=== PATIENT | female | born 1960 | race Caucasian/White ===

== ENCOUNTER → 2018-02-03 | Outpatient (CLI) | payer BC | END | disposition home or self-care (01) | LOC: US 15:19 | DX: N63.20 Unspecified lump in the left breast, unspecified quadrant (principal); N64.4 Mastodynia | CPT/HCPCS: 76641 ==

== ENCOUNTER → 2018-04-06 | Outpatient (CLI) | payer BC | END | disposition home or self-care (01) | LOC: MAMMO 15:33 | DX: Z12.31 Encounter for screening mammogram for malignant neoplasm of breast (principal) | CPT/HCPCS: 77063; 77067 ==

== ENCOUNTER → 2018-08-06 | Outpatient (CLI) | payer BC ==
[2014-09-04 14:35] VITALS: BP 122/64
[~2018-08-06] MED LIST: ASCO500C PO; CETI10TA22 PO; LORA10TA3 PO; MONT10TA9 PO; OMEG-151 PO
--- NOTE | 2018-08-06 10:59 | RAD ---
Bilateral breast ultrasound, 08/06/2018: History: Follow-up nodules Comparison is made to a study from 02/03/2018. On the previous study a small hypoechoic nodule was noted at the 1:00 location in the left breast approximately 7 cm from the nipple. It is redemonstrated on today's study. Its margins are smooth. There are low level internal echoes. It is wider than tall. There is faint posterior acoustic enhancement. It is stable measuring 6 x 4 x 3 mm. It has a benign appearance and is probably a complicated cyst or small fibroadenoma. We also target the 12:00 location in the right breast where a tiny elongated relatively isoechoic structure was seen on the previous study. It measures 4 x 2 x 5 mm and is unchanged. It has a benign appearance. IMPRESSION: Stable bilateral breast nodules as described above. Further sonographic surveillance in 6 months is suggested. BI-RADS 3-probably benign findings
== END | disposition home or self-care (01) ==
LOC: US 13:09
PROVIDERS: ATTEND Obstetrics & Gynecology
DX: N63.21 Unspecified lump in the left breast, upper outer quadrant (principal); N63.12 Unspecified lump in the right breast, upper inner quadrant
CPT/HCPCS: 76641

== ENCOUNTER → 2019-02-04 | Outpatient (CLI) | payer BC ==
[2014-09-04 14:35] VITALS: BP 122/64
--- NOTE | 2019-02-04 10:43 | RAD ---
Bilateral breast ultrasound, 02/04/2019: History: Follow-up breast nodule. A targeted ultrasound exam of both breasts was performed in the areas where small nodules have been previously noted. In the left breast at the 1:00 location approximately 7 cm from the nipple there is an oval-shaped smooth wider than tall hypoechoic nodule measuring 6 x 5 x 3 mm. It has shown no significant change. There is faint posterior acoustic enhancement. This is probably a complicated cyst or small fibroadenoma. In the right breast at the 12:00 retroareolar level there is an additional small smooth slightly hypoechoic nodule. It measures 5 x 5 x 2 mm and has shown no significant change since the previous study. IMPRESSION: Stable, probably benign bilateral breast nodules. Further sonographic surveillance in 6 months is suggested. BI-RADS 3-probably benign findings
== END | disposition home or self-care (01) ==
LOC: US 10:34
PROVIDERS: ATTEND Obstetrics & Gynecology
DX: N63.21 Unspecified lump in the left breast, upper outer quadrant (principal); N63.12 Unspecified lump in the right breast, upper inner quadrant
CPT/HCPCS: 76641

== ENCOUNTER → 2019-04-25 | Outpatient (CLI) | payer BC ==
[2014-09-04 14:35] VITALS: BP 122/64
[~2019-04-25] MED LIST changes: +MONT10TA49 PO; -MONT10TA9 PO
--- NOTE | 2019-04-26 10:00 | RAD ---
DATE: April 25, 2019 EXAM: MAMMO THA SCREENING BILATERAL HISTORY: Screening study. COMPARISON: 2014 and 2017 This study was interpreted with the benefit of Computerized Aided Detection (CAD). 2-D digital mammographic views of both breasts were performed in the CC and MLO projections. 3-D digital tomosynthesis images of both breasts were performed in the CC and MLO projections and reviewed on a computer workstation. FINDINGS: Breast Density: SCATTERED The breast parenchyma shows scattered fibroglandular densities. Breast parenchyma level B.. There are no dominant suspicious masses, suspicious microcalcifications or evidence of architectural distortion. IMPRESSION: No mammographic indicators for malignancy BI-RADS CATEGORY: 1 NEGATIVE RECOMMENDED FOLLOW-UP: 12M 12 MONTH FOLLOW-UP PQRS compliance statement: Patient information was entered into a reminder system with a target due date April 26, 2020 for the next mammogram. Mammography is a sensitive method for finding small breast cancers, but it does not detect them all and is not a substitute for careful clinical examination. A negative mammogram does not negate a clinically suspicious finding and should not result in delay in biopsying a clinically suspicious abnormality. "Our facility is accredited by the [employer] Mammography [employer]." The patient's breast density may affect the ability of mammography to detect breast cancer. There are 4 categories of breast density, A, B, C and D. Breast density A means that most of the breast tissue is replaced with adipose tissue and therefore is not dense. Breast density B means that the breast tissue is mildly dense and scattered. Breast density C means that the breast tissue is heterogeneously dense. Breast density D means that the breast tissue is very dense. Breast densities especially C and D may decrease the sensitivity of mammography to detect breast cancer. Therefore, the patient may benefit from 3-D breast mammography (3D breast tomography) as a part of their screening mammogram. Insurance may or may not pay for this additional imaging. The patient's breast density based on today's mammogram is category B.
== END | disposition home or self-care (01) ==
LOC: MAMMO 09:28
PROVIDERS: ATTEND Obstetrics & Gynecology
DX: Z12.31 Encounter for screening mammogram for malignant neoplasm of breast (principal)
CPT/HCPCS: 77063; 77067

== ENCOUNTER → 2019-08-19 | Outpatient (CLI) | payer BC ==
[2014-09-04 14:35] VITALS: BP 122/64
--- NOTE | 2019-08-19 15:38 | RAD ---
DATE: 08/19/2019. EXAM: ULTRASOUND BREAST BILATERAL. HISTORY: Six-month follow-up bilateral breast masses. COMPARISON: 02/03/2018, 04/06/2018, 08/06/2018, 02/04/2019, 04/25/2019. FINDINGS: Sonographic evaluation of the sites of prior concern in both breasts was performed. In the right retroareolar distribution, a hypoechoic focus measuring 5 x 2 x 4 mm is stable to decreased in size since the prior study. It appears circumscribed and may represent a region of apocrine metaplasia or tiny cysts. At the left 1:00 position 7 cm from the nipple, a hypoechoic oval nodule measures 5 x 3 x 5 mm and is unchanged. This is consistent with a benign complicated cyst or fibroadenoma. BI-RADS CATEGORY: 2 BENIGN FINDING(S). RECOMMENDED FOLLOW-UP: 6M 6 MONTH FOLLOW-UP. 1. Resume bilateral screening mammography in March 2020. PQRS compliance statement: Patient information was entered into a reminder system with a target due date 04/25/2020 for the next mammogram. Mammography is a sensitive method for finding small breast cancers, but it does not detect them all and is not a substitute for careful clinical examination. A negative mammogram does not negate a clinically suspicious finding and should not result in delay in biopsying a clinically suspicious abnormality. "Our facility is accredited by the [employer] Mammography [employer]."
== END | disposition home or self-care (01) ==
LOC: US 14:23
PROVIDERS: ATTEND Obstetrics & Gynecology
DX: N60.01 Solitary cyst of right breast (principal)
CPT/HCPCS: 76641

== ENCOUNTER → 2019-09-16 | Outpatient (CLI) | payer BC ==
[2014-09-04 14:35] VITALS: BP 122/64
[~2019-09-16] MED LIST changes: -CETI10TA22 PO; +CETI10TA24 PO
--- NOTE | 2019-09-16 14:56 | RAD ---
EXAM: Pelvic sonogram. HISTORY: Pelvic pain. TECHNIQUE: Sonographic imaging of the pelvis was performed. COMPARISON: None. FINDINGS: The uterus is heterogeneous. There is a 1.3 cm anterior uterine fibroid. The uterus measures 5.8 x 4.1 x 2.8 cm. The endometrial stripe measures less than 2 mm in thickness. The right ovary is obscured. The left ovary is normal in size and demonstrates normal blood flow. There is no pelvic free fluid. IMPRESSION: 1. Heterogeneous uterus containing at least one small fibroid. 2. Obscured right ovary. 3. Thin endometrium, consistent with the postmenopausal status of the patient. Electronically signed by: Liz Lr MD (09/16/2019 2:53 PM) [place] [id number]
== END | disposition home or self-care (01) ==
LOC: US 12:46
PROVIDERS: ATTEND Family Medicine
DX: D25.9 Leiomyoma of uterus, unspecified (principal)
CPT/HCPCS: 76830; 76856

== ENCOUNTER → 2020-04-16 | Outpatient (CLI) | payer BC ==
[2014-09-04 14:35] VITALS: BP 122/64
--- NOTE | 2020-04-16 18:34 | KCIC ---
Bilateral digital screening mammograms with 3-D tomosynthesis: Reason for examination: Routine screening. Comparison is made to previous studies dated back to 03/11/2017. Bilateral mammograms in CC and oblique projections were obtained with 2-D imaging and 3-D tomosynthesis imaging on a Siemens Inspiration unit and reviewed on the workstation. Interpretation was made with the benefit of CAD. The skin and nipples show no abnormalities. No abnormal axillary lymph nodes are seen. The breast parenchyma shows scattered fatty and fibroglandular density. (Breast density: Category B.) There are no dominant masses, suspicious calcifications or architectural distortion. Impression: No evidence of malignancy. Recommend routine screening. BI-RAD Category 1: Negative. "Our facility is accredited by the [employer] Mammography [employer]." This patient's information has been entered into a reminder system for the patient to be notified with the results of her examination and a target date for the next mammogram. Electronically signed by: Rachna Carson MD (04/16/2020 6:31 PM) [email or web address]
== END | disposition home or self-care (01) ==
LOC: KCIC MAMMO 12:19
PROVIDERS: ATTEND Family Medicine
DX: Z12.31 Encounter for screening mammogram for malignant neoplasm of breast (principal)
CPT/HCPCS: 77063; 77067

== ENCOUNTER → 2021-06-10 | Outpatient (CLI) | payer BC ==
[2014-09-04 14:35] VITALS: BP 122/64
[~2021-06-10] MED LIST changes: -CETI10TA24 PO; +CETI10TA74 PO
--- NOTE | 2021-06-10 13:18 | KCIC ---
Bilateral digital screening mammograms with 3-D tomosynthesis: Reason for examination: Routine screening. Comparison is made to previous studies dated back to 03/11/2017. Bilateral mammograms in CC and oblique projections were obtained with 2-D imaging and 3-D tomosynthes is imaging on a Siemens Inspiration unit and reviewed on the workstation. Interpretation was made wit h the benefit of CAD. The skin and nipples show no abnormalities. No abnormal axillary lymph nodes are seen. The breast par enchyma shows scattered fatty and fibroglandular density. (Breast density: Category B.) There are no dominant masses, suspicious calcifications or architectural distortion. Impression: No evidence of malignancy. Recommend routine screening. BI-RAD Category 2: Benign. "Our facility is accredited by the [employer] Mammography Program." This patient's information has been entered into a reminder system for the patient to be notified wit h the results of her examination and a target date for the next mammogram. Electronically signed by: Rachna Carson MD (06/10/2021 1:15 PM) [email or web address]
== END ==
LOC: KCIC MAMMO 10:24
PROVIDERS: ATTEND Obstetrics & Gynecology
DX: Z12.31 Encounter for screening mammogram for malignant neoplasm of breast (principal)
CPT/HCPCS: 77063; 77067

== ENCOUNTER → 2021-12-25 | Outpatient (CLI) | payer BC ==
[2014-09-04 14:35] VITALS: BP 122/64
--- NOTE | 2021-12-25 11:23 | RAD ---
EXAMINATION: Lateral breast ultrasound INDICATION: Patient presents with bilateral breast pain COMPARISON: Mammogram from 06/10/2021 as well as bilateral breast ultrasounds from 08/19/2019 dating b ack to 02/03/2018 FINDINGS: Right breast: Targeted right breast ultrasound from the 4-9:00 positions corresponding to the areas o f pain reveals normal scattered and heterogenous dense fibroglandular breast tissue. There are no karen picious findings. Additional evaluation at the 12:00 position, retroareolar depth also demonstrates n ormal scattered fibroglandular breast tissue. Right axillary lymph nodes demonstrated normal morphology. Left breast: Targeted left breast ultrasound at the 1:00 position, 7 cm deep to the nipple redemonstr ates a circumscribed hypoechoic parallel oriented mass residing in a extremely dense band of normal f ibroglandular tissue that measures up to 6.9 mm in maximal diameter. There is no suspicious vasculari ty with subtle increase in through transmission of sound. This has demonstrated stability dating back to 2018 favoring benign waxing and waning fibrocystic type change. Visualized left axillary lymph nodes demonstrated normal morphology. IMPRESSION: Targeted bilateral breast and axillary ultrasound demonstrates no suspicious abnormalitie s. BI-RADS 2. Benign findings. Advise continued annual screening mammography in 06/10/2022 Electronically signed by: Reinier Rivas DO (12/25/2021 11:09 AM) [id number]
== END ==
LOC: US 10:36
DX: N63.21 Unspecified lump in the left breast, upper outer quadrant (principal)
CPT/HCPCS: 76641-50